=== PATIENT | female | born 1970 | race Caucasian/White ===

== ENCOUNTER 2021-12-13 02:32 | Emergency (ER) | payer SELFPAY ==
[2021-12-13] MEDS ORDERED: traMADol 50 MG Tab PO ONE (02:33)
== END 2021-12-13 04:45 | disposition home or self-care (01) ==
LOC: FB.ED 02:32
DX: S00.10XA Contusion of unspecified eyelid and periocular area, initial encounter (principal); W18.39XA Other fall on same level, initial encounter
CPT/HCPCS: 70450; 72125; 99282; 99284; A9270

== ENCOUNTER 2024-01-31 03:14 | Emergency (ER) | payer BC ==
[2024-01-31 03:52] LABS: BASOPHILS PERCENT AUTO 0.4 % (0.2-1.5); EOSINOPHILS ABSOLUTE AUTO 0.1 x10-3/uL (0.0-0.8); EOSINOPHILS PERCENT AUTO 0.7 % (0.6-8.1); HEMATOCRIT 40.8 % (34.2-48.2); HEMOGLOBIN 13.5 g/dL (11.4-15.5); LYMPHOCYTES ABSOLUTE AUTO 1.7 x10-3/uL (1.0-4.4); LYMPHOCYTES PERCENT AUTO 21.1 % (18.4-52.1); MEAN CORPUSCULAR HEMOGLOBIN 31.2 pg (23.9-33.9); MEAN CORPUSCULAR HGB CONC 33.1 g/dL (31.9-34.8); MEAN CORPUSCULAR VOLUME 94.1 fL (76.7-100.5); MEAN PLATELET VOLUME 9.9 fL (7.1-12.4); MONOCYTES ABSOLUTE AUTO 0.4 x10-3/uL (0.3-1.0); MONOCYTES PERCENT AUTO 5.2 % (4.4-15.7); NEUTROPHILS ABSOLUTE AUTO 5.7 x10-3/uL (1.5-6.3); NEUTROPHILS PERCENT AUTO 72.6 % (30.8-76.2); PLATELET COUNT,PLT 231 x10(3)uL (151-488); RED BLOOD CELL COUNT 4.33 x10(6)uL (3.60-5.20); RED CELL DISTRIBUTION WIDTH 13.5 % (12.3-16.5); WHITE BLOOD CELL COUNT,WBC 7.9 x10-3/uL (3.0-10.3)
[2024-01-31 04:01] LABS: BLOOD UREA NITROGEN,BUN 12 mg/dL (7-18); BUN/CREATININE RATIO 13.3 (9-20); CALCIUM 8.8 mg/dL (8.6-10.2); CARBON DIOXIDE,CO2 26 mmol/L (21-32); CHLORIDE,CL 102 mmol/L (100-110); CREATININE 0.9 mg/dL (0.55-1.02); ESTIMATED GFR 76 mL/min (>60); GLUCOSE RANDOM 117 mg/dL (80-116); POTASSIUM,K 3.5 mmol/L (3.5-5.3); SODIUM,NA 139 mmol/L (135-145)
[2024-01-31 04:06] LABS: A/G RATIO 1.1; ALANINE AMINOTRANSFERASE,ALT 44 U/L (12-36); ALBUMIN 3.9 g/dL (3.5-5.2); ALKALINE PHOSPHATASE 111 IU/L (56-112); ASPARTATE AMNIOTRANSFERASE,AST 25 IU/L (5-25); BILIRUBIN TOTAL 0.6 mg/dL (0.1-1.3); PROTEIN TOTAL,TP 7.5 g/dL (6.0-8.0)
[2024-01-31] MEDS: Ketorolac 30 MG/ML SDV IVPUSH ONE (04:21)
[2024-01-31] MEDS: Sodium Chloride 0.9% 1,000 ML IV SCH (04:27)
[2024-01-31] MEDS: Iopamidol 755 Mg/ML 100 ML Bottle IV SCH (04:39)
== END 2024-01-31 06:55 | disposition home or self-care (01) ==
LOC: FB.ED 03:14
DX: K02.62 Dental caries on smooth surface penetrating into dentin (principal)
CPT/HCPCS: 36415; 70487; 80053; 85025; 86140; 96374; 99283; J1885; J7030; Q9967

== ENCOUNTER 2024-04-17 13:41 | Emergency (ER) | payer BC ==
[2024-04-17] MEDS: Ketorolac 30 MG/ML SDV IM ONE (14:36)
[2024-04-17] MEDS: Cephalexin 500 MG Cap PO ONE (14:36)
[2024-04-17] MEDS: cefTRIAXone 1 GM Vial IM ONE (15:54)
[2024-04-17] MEDS: Acetaminophen/oxyCODONE 325-5 MG Tab PO ONE (15:55)
== END 2024-04-17 16:05 | disposition home or self-care (01) ==
LOC: FB.ED 13:41
DX: K02.9 Dental caries, unspecified (principal); K04.7 Periapical abscess without sinus
CPT/HCPCS: 96372; 99283; A9270; J0696; J1885